=== PATIENT | male | born 1970 | race Caucasian/White ===

== ENCOUNTER 2020-06-27 12:24 | Emergency (ER) | payer MEDICAID ==
[~2020-06-27] VITALS: Ht 185.4 cm; Wt 103.4 kg
[2020-06-27 12:33] VITALS: BP 196/109
--- NOTE | 2020-06-27 12:50 | NUR ---
PT CAME IN CO OF ANXIETY AND HIGH BP. STATES HE DRINKS EVERYDAY AND SMOKES A PACK A DAY. HE HAS BEEN FIGHTING HIS ANXIETY FOR YEARS EVER SINCE HE STOPPED TAKING XANAX. HE STATES HE WANTS TO STOP DRINKING. PT IS NON COMPLIANT WITH HTN MEDS. PT IS RESTING IN [place], CONNECTED TO MONITORING EQUIPMENT, PROVIDER IS BEDSIDE FOR ASSESSMENT
[2020-06-27] MEDS ORDERED: LORazepam 2 MG/ML, 1ML IVPush PRN (13:00)
[2020-06-27] MEDS ORDERED: SODIUM CHLORIDE 0.9% 1,000ML IVBOLUS ONE (13:00)
[2020-06-27] MEDS ORDERED: SODIUM CHLORIDE FLUSH 10ML SYR IVF ONE (13:00)
[2020-06-27] MEDS ORDERED: LORazepam 2 MG/ML, 1ML ONE (13:05)
[2020-06-27 13:11] LABS: BASOPHILS # (AUTO) 0.02 x10^3/uL (0-0.1); BASOPHILS % (AUTO) 0 % (0-1); EOSINOPHILS # (AUTO) 0.01 x10^3/uL (0-0.4); EOSINOPHILS % (AUTO) 0 % (1-7); LYMPHOCYTES # (AUTO) 1.13 x10^3/uL (1-3.4); LYMPHOCYTES % (AUTO) 14 % (22-44); MD NO; MEAN CORPUSCULAR HEMOGLOBIN 31.5 pg (27.5-34.5); MEAN CORPUSCULAR HGB CONC 33.2 g/dL (33.2-36.2); MONOCYTES # (AUTO) 0.82 x10^3/uL (0.2-0.8); MONOCYTES % (AUTO) 10 % (2-9); NEUTROPHILS % (AUTO) 76 % (42-75); PLATELET COUNT 203 x10^3/uL (130-400); RED BLOOD COUNT 5.83 x10^6/uL (4.38-5.82); RED CELL DISTRIBUTION WIDTH 13.4 % (9.4-14.8)
[2020-06-27 13:23] LABS: ALBUMIN 3.9 g/dL (3.4-5.0); ANION GAP 5 mmol/L (5-15); CALCIUM 9.2 mg/dL (8.5-10.1); CHLORIDE 106 mmol/L (98-107)
[2020-06-27 13:28] LABS: ALANINE AMINOTRANSFERASE 65 U/L (12-78); ALKALINE PHOSPHATASE 67 U/L (45-117); BILIRUBIN,TOTAL 1.1 mg/dL (0.2-1.0); CREATININE 0.95 mg/dL (0.7-1.3); TOTAL PROTEIN 7.6 g/dL (6.4-8.2); TROPONIN I < 0.015 ng/mL (0.000-0.045)
--- NOTE | 2020-06-27 13:29 | NUR ---
PIV STARTED, LABS DRAWN, 1L NS BOLUS STARTED. PT REFUSING ATIVAN AT THIS TIME. RESTING ON [employer] W/ CALL LIGHT IN REACH AND SIDE RAILS UPX2, NADN. DENIES FURTHER NEEDS AT THIS TIME.
--- NOTE | 2020-06-27 14:36 | NUR ---
Patient given discharge instructions and they have confirmed that they understand the instructions. Patient ambulatory with steady gait.
== END 2020-06-27 14:37 | disposition home or self-care (01) ==
LOC: ED 13:44
DX: F10.239 Alcohol dependence with withdrawal, unspecified (principal); R07.89 Other chest pain; R45.4 Irritability and anger; R51 Headache; I10 Essential (primary) hypertension; J69.0 Pneumonitis due to inhalation of food and vomit; Y90.0 Blood alcohol level of less than 20 mg/100 ml
CPT/HCPCS: 36415; 71046; 80053; 80307; 84484; 85025; 93005; 96360; 99285; J7030